=== PATIENT | female | born 1940 ===

== ENCOUNTER → 2018-08-26 | Outpatient (CLI) | payer MEDICARE, OTHER | END | disposition home or self-care (01) | LOC: LAB SHORT 18:16 → LAB 18:16 | DX: Z48.817 Encounter for surgical aftercare following surgery on the skin and subcutaneous tissue (principal); L08.9 Local infection of the skin and subcutaneous tissue, unspecified; L57.0 Actinic keratosis; D04.61 Carcinoma in situ of skin of right upper limb, including shoulder | CPT/HCPCS: 87070; 87077; 87186; 87205 ==